=== PATIENT | female | born 1990 | race Caucasian/White ===

== ENCOUNTER → 2017-05-22 | Outpatient (CLI) | payer BC ==
[~2017-05-22] MED LIST: IOHEXOL 240 MG/ML 50ML VIAL. IV ONE; IOHEXOL 300 MG/ML 100ML VIAL. IV ONE
--- NOTE | 2017-05-22 10:49 | KCIC ---
CT ABD PELV W/ORAL IV CONTRAST dated 05/22/2017 10:30 AM Indication: Right-sided abdominal pain, history of Crohn's disease, vomiting pain for 2 weeks Comparison: 04/20/2015 Technique: Contiguous axial imaging of the abdomen and pelvis performed after the administration of 100 cc Omnipaque 300. One or more of the following individualized dose reduction techniques were utilized for this examination: 1. Automated exposure control 2. Adjustment of the mA and/or kV according to patient size 3. Use of iterative reconstruction technique Findings: Limited images of lung bases are clear. Heart size within normal limits. No pleural or pericardial effusion. Liver, spleen, pancreas, adrenal glands, gallbladder and kidneys are unremarkable. No hydronephrosis. Partially opacified GI tract is normal in caliber and contour. There are segmental areas of possible mild wall thickening involving the transverse colon and hepatic flexure. No inflammatory changes in the mesentery. The terminal ileum is unremarkable. No free fluid or lymphadenopathy. Abdominal aorta normal in caliber. Appendix normal in caliber. Images of pelvis shows nondistended urinary bladder. Uterus is unremarkable. Low-density focus at the left ovary measures 1.7 cm in size, likely small complex cyst. Trace amount of free pelvic fluid. No pelvic lymphadenopathy. Bone windows show no acute findings. Mild multilevel spondylosis with Schmorl's nodes at the inferior endplates of T8 and T11 superior endplate of L4. IMPRESSION: 1. Possible mild areas of segmental wall thickening of the transverse colon and hepatic flexure, nonspecific. This could be a manifestation of Crohn's disease. There is no significant inflammatory change in the mesentery. The terminal ileum is unremarkable. 2. Probable small complex cyst at the left ovary measuring 1.7 cm in size. 3. Trace amount of free pelvic fluid, nonspecific. Electronically signed by: Yasmani Calles MD (05/22/2017 10:46 AM) [id number]
== END | disposition home or self-care (01) ==
LOC: KCIC CT 09:12
PROVIDERS: ATTEND Internal Medicine Gastroenterology
DX: K50.90 Crohn's disease, unspecified, without complications (principal)
CPT/HCPCS: 74177; Q9966; Q9967

== ENCOUNTER → 2018-09-04 | Outpatient (CLI) | payer BC ==
[~2018-09-04] MED LIST changes: +BARIUM SULFATE 0.1% 450 ML SUSP PO ONE; +CONTRAST GIVEN. MC PRN; -IOHEXOL 240 MG/ML 50ML VIAL. IV ONE
--- NOTE | 2018-09-04 13:28 | KCIC ---
CT Abdomen and Pelvis With Intravenous Contrast (CT enterography): History: Crohn's disease, abdominal pain. Loose stools. Comparison: CT abdomen pelvis May 22, 2017. Technique: After administration of VoLumen low-density oral and intravenous contrast, 100 mL Omnipaque-300, CT of the abdomen and pelvis was performed according to CT enterography protocol. Exposure: One or more of the following individualized dose reduction techniques were utilized for this examination: 1. Automated exposure control 2. Adjustment of the mA and/or kV according to patient size 3. Use of iterative reconstruction technique Findings: Liver, spleen, pancreas, gallbladder, and bilateral adrenal glands are unremarkable. Bilateral kidneys enhance symmetrically. No bowel obstruction or inflammation is identified. No abscess, extraluminal fluid collection, fistula, or inflammatory change of the bowel is seen. Appendix is without evidence of inflammation. No free air or significant free fluid is seen in the abdomen or pelvis. Urinary bladder is unremarkable. Uterus and adnexa unremarkable CT appearance. Degenerative disc disease is seen at L4-5 and L5-S1. Impression: 1. No acute abnormality identified in the abdomen or pelvis. Electronically signed by: Yasmani Zambrano MD (09/04/2018 1:24 PM) [place] [id number]
== END | disposition home or self-care (01) ==
LOC: KCIC CT 11:43
PROVIDERS: ATTEND Internal Medicine Gastroenterology
DX: M51.37 Other intervertebral disc degeneration, lumbosacral region (principal); M51.36 Other intervertebral disc degeneration, lumbar region
CPT/HCPCS: 74177; Q9967

== ENCOUNTER → 2020-08-11 | Outpatient (CLI) | payer BC ==
[~2020-08-11] VITALS: Ht 177.8 cm; Wt 127.0 kg
[~2020-08-11] MED LIST changes: -BARIUM SULFATE 0.1% 450 ML SUSP PO ONE; -CONTRAST GIVEN. MC PRN; -IOHEXOL 300 MG/ML 100ML VIAL. IV ONE; +SINCALIDE 2.54 MCG in IV NORMAL SALINE 50ML 30 ML IV ONE
--- NOTE | 2020-08-11 08:13 | RAD ---
ABDOMEN COMPLETE History: Right upper quadrant pain Comparison: June 30, 2015. Findings: Multiple sonographic images of the abdomen are submitted. Gallbladder is present without intraluminal abnormality or wall thickening. Hepatic echogenicity is within normal limits. Right lobe of the liver measured 15 cm longitudinal. Right kidney measured 11.6 x 4.4 x 4.5 cm, no hydronephrosis. Left kidney measured 11.5 x 6 x 5.5 cm, no hydronephrosis. Spleen is again enlarged about 13.5 cm. Pancreas is not well-visualized due to bowel gas. There is segmental visualization of the inferior vena cava. Abdominal aortic caliber is within normal limits up to 2 cm proximally. Impression: 1. There is mild splenomegaly, no other significant abnormality identified. Electronically signed by: Anthony Vargas MD (08/11/2020 8:10 AM) [facility]ITALAnselmo
--- NOTE | 2020-08-11 11:42 | RAD ---
HEPATOBILIARY SCAN WITH EJECTION FRACTION History: right upper quandrant pain and nausea for 2 months . Crohn's disease Procedure: Serial static images are obtained of the liver and biliary system in the frontal projection following IV administration of 5.5 mCi of Technetium 99m Choletec. After filling of the gallbladder, 2.5 mcg of sincalide were infused over 30 minutes and dynamic imaging continued over this period. The gallbladder ejection fraction was calculated. Findings: There is prompt hepatic clearance of tracer from the blood pool. There is homogeneous distribution throughout the liver. There is normal filling of the gallbladder and normal emptying into the biliary system and small bowel. The gallbladder ejection fraction measures 95% (normal gallbladder EF is 35% or greater). IMPRESSION: 1. The cystic duct and common bile duct are patent. Negative for acute cholecystitis. 2. The gallbladder ejection fraction is normal. Electronically signed by: Danny Mejía MD (08/11/2020 11:39 AM) [id number]
== END ==
LOC: US 06:49
PROVIDERS: ATTEND Physician Assistant
DX: K81.9 Cholecystitis, unspecified (principal); R16.1 Splenomegaly, not elsewhere classified
CPT/HCPCS: 76700; 78227; A9537; J2805